=== PATIENT | female | born 1940 | race Caucasian/White ===

== ENCOUNTER 2024-11-30 12:46 | Outpatient (CLI) | payer MEDICARE | END 2024-11-30 12:47 | disposition home or self-care (01) | LOC: CSHMAMMO 12:46 | PROVIDERS: ATTEND Student in an Organized Health Care Education/Training Program | DX: Z12.31 Encounter for screening mammogram for malignant neoplasm of breast (principal) | CPT/HCPCS: 77063; 77067 ==

== ENCOUNTER 2025-01-29 07:31 | Outpatient (CLI) | payer MEDICARE ==
[2025-01-29 08:49] LABS: Estimated GFR - POC 74.0
[2025-01-29] MEDS ORDERED: Iopamidol-370 76% 500 ML MDV (1 ML CHARGE) ONE (09:50)
== END 2025-01-29 07:32 | disposition home or self-care (01) ==
LOC: CSHCT 07:31
PROVIDERS: ATTEND Physician Assistant
DX: I73.9 Peripheral vascular disease, unspecified (principal); I77.1 Stricture of artery; I72.8 Aneurysm of other specified arteries
CPT/HCPCS: 75635; 82565